=== PATIENT | female | born 1995 | race Caucasian/White ===

== ENCOUNTER 2024-01-11 14:34 | Outpatient (CLI) | payer OTHER, SELFPAY ==
--- NOTE | 2024-01-11 15:00 | US_ITS ---
Patient: NELL ACEVEDO Facility:?[facility] Patient ID:?[id number] Site Patient ID:?[id number]. Site :?[id number] Study:?US-OB Pelvis dating-01/11/2024 3:19:50 PM Ordering Physician:Troy December Final Report: INDICATION: Check viability and dates TECHNIQUE: Transabdominal and transvaginal scanning was performed. Transvaginal scanning was performed to better evaluate the IUP and adnexa. Ovarian blood flow was evaluated with color-flow and pulsed Doppler. COMPARISON: None FINDINGS: There is a living IUP with gestational age of 9 weeks 4 days by LMP and today`s crown-rump length. EDC is 08/11/2024. The embryonic heart rate is measured at 178 beats per minute. The placenta appears to be forming anteriorly. No subchorionic hemorrhage is evident. A left uterine body fibroid measuring 5.3 x 5.2 x 5.0 cm is noted. The ovaries are normal in size and shape. The right ovary measures 3.3 x 1.7 x 1.6 cm and the left 3.3 x 2.9 x 1.8 cm. Ovarian blood flow is demonstrated with color-flow and pulsed Doppler. No adnexal mass or free fluid is apparent. IMPRESSION: 1. Living IUP with gestational age of 9 weeks 4 days by LMP and today`s crown- rump length. EDC is 08/11/2024. 2. No complication evident. 3. 5.3 x 5.2 x 5.0 cm left uterine body fibroid. Dictated by Gordy Winston MD @ 01/12/2024 11:30:49 AM Signed by:?Gordy Winston MD @01/12/2024 11:30:49 AM (Electronic Signature)
== END 2024-01-11 14:35 | disposition home or self-care (01) ==
PROVIDERS: Visit Provider Physician Assistant
DX: Z34.91 Encounter for supervision of normal pregnancy, unspecified, first trimester (principal); O34.11 Maternal care for benign tumor of corpus uteri, first trimester; D25.9 Leiomyoma of uterus, unspecified; Z3A.09 9 weeks gestation of pregnancy
CPT/HCPCS: 76817; 86703; 86706; 86803; 86850; 86900; 86901; 87086; 87340; 87491; 87591

== ENCOUNTER 2024-01-11 16:30 | Outpatient (CLI) | payer OTHER, SELFPAY ==
[2024-01-11 21:28] LABS: Chlamydia DNA Amplified* NOT DETECTED (No Detected); GC DNA Amplified* NOT DETECTED (No Detected)
== END 2024-01-11 16:31 | disposition home or self-care (01) ==
PROVIDERS: PCP Physician Assistant; Visit Provider Physician Assistant
DX: Z34.01 Encounter for supervision of normal first pregnancy, first trimester (principal)
CPT/HCPCS: 86592; 86703; 86704; 86706; 86762; 86787; 86803; 86850; 86900; 86901; 87086; 87340; 87491; 87591

== ENCOUNTER 2024-03-28 13:43 | Outpatient (CLI) | payer OTHER, SELFPAY ==
--- NOTE | 2024-03-28 13:45 | CRLHL7_ITS ---
For Patients: As a result of the Century Cures Act, medical imaging exams and procedure reports are released immediately into your electronic medical record. You may view this report before your referring provider. If you have questions, please contact your health care provider. INDICATION: Evaluate anatomy. COMPARISON: 01/11/2024 TECHNIQUE: Real time mccollum scale imaging of the fetus was performed as well as color Doppler analysis of the umbilical vessels. FINDINGS: Sonographic imaging demonstrates a single living intrauterine gestation. Fetus demonstrates a regular cardiac rate of 145 beats per minute. Fetus has a breech position. The placenta lies anteriorly without evidence of placenta previa. Edge of the placenta located 4.8 cm from the internal cervical os. Amniotic fluid volume appears normal. Single deepest vertical pocket: 5.3 cm. The cervix is closed and measures 3.3 cm in length. The composite ultrasound gestational age is calculated at 21 weeks 0 days with an estimated sonographic due date of 08/08/2024. The estimated weight is 397 grams which lies at the 73rd %. The following biometric measurements were obtained: Biparietal diameter: 4.8 cm/20 weeks 4 days 47th% Head circumference: 17.8 cm/20 weeks 2 days 28th% Abdominal circumference: 16.6 cm/21 weeks 4 days 76th% Femur length: 3.4 cm/20 weeks 5 days 45th% The HC/AC ratio measures: 1.08 range (1.06-1.25) On anatomic survey, there is a normal appearance of the cerebral ventricles, cavum septi pellucidi, cisterna magna and cerebellum. The nose and lips appear normal. Incomplete visualization of the profile. The cervical, thoracic and lumbar spine are well visualized and appear normal. There is a normal four-chamber heart view and the left and right ventricular outflow tracts appear normal. Incomplete visualization of the 3VV and 3VTV. The diaphragm and stomach appear normal. The kidneys and bladder also appear normal. There is a normal three-vessel cord and cord insertion site. The four extremities appear normal. IMPRESSION: Concordance of clinical and sonographic dating. Incomplete visualization of the profile, 3VV and 3VTV. Remainder of the anatomic survey normal. Short-term follow-up recommended. Dictated by Randall Giang MD @ 03/30/2024 9:07:44 AM (Electronically Signed)
== END 2024-03-28 13:44 | disposition home or self-care (01) ==
LOC: US 13:44
PROVIDERS: Visit Provider Obstetrics & Gynecology
DX: Z34.90 Encounter for supervision of normal pregnancy, unspecified, unspecified trimester (principal)
CPT/HCPCS: 76805

== ENCOUNTER 2024-04-11 15:27 | Outpatient (CLI) | payer OTHER, SELFPAY ==
--- NOTE | 2024-04-11 15:30 | CRLHL7_ITS ---
For Patients: As a result of the Century Cures Act, medical imaging exams and procedure reports are released immediately into your electronic medical record. You may view this report before your referring provider. If you have questions, please contact your health care provider. INDICATION: F/U missed anatomy. completed COMPARISON: 01/11/2024, 03/28/2024 TECHNIQUE: Real time mccollum scale imaging of the fetus was performed. FINDINGS: Cervix is closed and measures 3.4 cm. Anterior placenta. Vertex position. Single deepest pocket 6.2 cm. profile, 3VV and 3VTV appear normal. IMPRESSION: Normal profile, 3VV and 3VTV. Dictated by Randall Giang MD @ 04/12/2024 6:57:29 AM (Electronically Signed)
== END 2024-04-11 15:28 | disposition home or self-care (01) ==
LOC: US 15:28
PROVIDERS: Visit Provider Obstetrics & Gynecology
DX: Z34.90 Encounter for supervision of normal pregnancy, unspecified, unspecified trimester (principal); Z36.89 Encounter for other specified antenatal screening
CPT/HCPCS: 76816

== ENCOUNTER 2024-05-15 13:40 | Outpatient (CLI) | payer OTHER, SELFPAY | END 2024-05-15 13:41 | disposition home or self-care (01) | LOC: NFLDREF 05-19 19:02 | PROVIDERS: Visit Provider Obstetrics & Gynecology | DX: Z34.02 Encounter for supervision of normal first pregnancy, second trimester (principal) | CPT/HCPCS: 86592 ==

== ENCOUNTER 2024-05-24 15:36 | Outpatient (RCR) | payer OTHER, SELFPAY | END 2024-08-08 16:07 | disposition home or self-care (01) | PROVIDERS: Visit Provider Obstetrics & Gynecology | DX: O99.891 Other specified diseases and conditions complicating pregnancy (principal); M54.9 Dorsalgia, unspecified; R53.1 Weakness; Z51.89 Encounter for other specified aftercare | CPT/HCPCS: 97110; 97112; 97161 ==

== ENCOUNTER 2024-05-30 07:59 | Outpatient (CLI) | payer OTHER, SELFPAY | END 2024-05-30 08:00 | disposition home or self-care (01) | LOC: NFLDREF 06-03 06:40 | PROVIDERS: Visit Provider Obstetrics & Gynecology | DX: Z34.03 Encounter for supervision of normal first pregnancy, third trimester (principal) | CPT/HCPCS: 82951; 82952 ==

== ENCOUNTER 2024-07-12 09:48 | Outpatient (CLI) | payer OTHER, SELFPAY ==
[2024-07-13 12:11] LABS: Strep B DNA Probe Negative (Negative)
[2024-07-13 12:14] LABS: Strep B Susceptibility Needed? No
== END 2024-07-12 09:49 | disposition home or self-care (01) ==
LOC: NFLDREF 09:48
PROVIDERS: Visit Provider Obstetrics & Gynecology
DX: O24.419 Gestational diabetes mellitus in pregnancy, unspecified control (principal); O14.92 Unspecified pre-eclampsia, second trimester; Z3A.35 35 weeks gestation of pregnancy
CPT/HCPCS: 76816; 76819; 76820; 87081; 87653

== ENCOUNTER 2024-07-12 12:28 | Inpatient (IN) | payer OTHER, SELFPAY ==
[2024-07-12] VITALS (20 sets, daily range): BP systolic 126–147; BP diastolic 69–93; PULSE 64–251; RESP 16; TEMP 36.5; O2SAT 83–100
[2024-07-12 10:48] LABS: Hematocrit 36.9 % (33.0-51.0); Hemoglobin* 12.4 gm/dL (12.0-16.0); Mean Corpuscular HGB Conc 34 gm/dL (32-36); Mean Corpuscular Hemoglobin 31 pg (26-34); Mean Corpuscular Volume 92 fL (80-100); Platelet Count* 240 K/uL (140-440)
[2024-07-12 10:51] LABS: Slide Review Reflex No
[2024-07-12 11:11] LABS: Alanine Aminotransferase* 11 U/L (4-35); Aspartate Amino Transferase* 18 U/L (12-35); Blood Urea Nitrogen* 18 mg/dL (5-24); Creatinine* 0.5 mg/dL (0.5-1.5); Estimated Glomerular Filt Rate 132 ml/min
[2024-07-12 12:02] LABS: Total Protein Urine 30 mg/dL
[2024-07-12 12:03] LABS: Creatinine Urine 76.4 mg/dL; Protein Creatinine Ratio Urine 0.39 (0-0.19)
--- NOTE | 2024-07-12 12:54 | W.PM.LDBA ---
Subjective History of Present Illness Time Seen by Provider: 12:30 Date Seen: 07/12/24 Narrative: Patient is being admitted to Labor and Delivery for induction of labor. She is a 29 year old at 35 weeks and 5 days gestation, transferred to triage from clinic. is complicated by GDM A1, with a new finding of growth restriction, elevated SD ratio via UA Doppler, and hypertensive disorder of today. Please see my clinic note for complete details. Since arriving to triage, Kia has had several mild range blood pressures. On review of her blood pressures, she additionally had an elevated blood pressure at 25 weeks where she does not meet criteria for hypertensive disorder of . HELLP labs were obtained, and found to be within normal limits aside from protein urea. She continues to feel well - denies headache, vision changes, right upper quadrant pain, contractions, vaginal bleeding or leaking of fluid. Endorses active movement. We discussed the diagnosis of preeclampsia without severe features, where medically indicated induction of labor is recommended in the setting of comorbid growth restriction and elevated SD ratio. All questions answered. GBS was collected in clinic, pending at this time. Specific Issues/Plans Spouse: Cam. Baby: Boy! Fish # 5.3 x 5.2 x 5.0 cm left uterine body fibroid # hepatitis-B nonimmune. # Gestational diabetes 1 hr GTT = 146. 3 hr GTT with 3 of 4 values elevated. [employer] visit scheduled, glucometer prescribed Referred to December for consideration of insulin (likely PM only) Visit with December 14, will add protein snack before bedtime. 06/26: 2/8 fasting elevated. Send log again in one week: Good! US for EFW ordered on 06/28/24 to done at 35 weeks. Covid : 06/14/2024 Flu : 06/14/2024 Tdap: 05/30/2024 RSV: 06/28/24 34wk hgb: 11.3 OB - Problem Based A/P Additional Plan (1) Pre-eclampsia affecting childbirth: Status: Acute (2) growth restriction antepartum: Status: Acute (3) Gestational diabetes: Status: Acute Plan Kia is a 29-year-old at 35 weeks 5 days gestational age admitted for induction of labor in the setting of newly diagnosed growth restriction with abnormal UA Dopplers, complicated by preeclampsia without severe features. is otherwise complicated by GDM A1. - Admit to Labor and delivery. - Induction of labor started with Cytotec per protocol overnight. On initial cervical exam she is long, closed and mid position. Discussed potential next steps including cook catheter further cervical ripening is required, versus Pitocin and amniotomy. We had an extensive discussion about the risk/benefits of induction of labor, where patient provided verbal consent to proceed. - Diligent blood pressure monitoring ongoing. Plan to recheck HELLP labs with any sustained severe range blood pressures or new symptoms. - Blood glucose monitoring and treatment per GDM protocol - Blood type O positive - GBS pending, plan to treat based on risk factors (prematurity) with initiation of Pitocin or rupture of membranes. This can be discontinued if her GBS swab returns negative in the near future. - Late term betamethasone was deferred given GDM - SBAR given to wendy Luna [employer], where she will be requested to attend delivery in the setting of prematurity and growth restriction. Kia and her were counseled about the potential complications of prematurity, which could include transfer for NICU admission. OB Exam Physical Exam Vital signs: Temp Pulse Resp BP Pulse Ox 97.7 F 94 16 134/79 100 07/12/24 09:59 07/12/24 12:36 07/12/24 09:59 07/12/24 12:36 07/12/24 10:01 Narrative: General: Alert and oriented, no acute distress Psych: Appropriate mood and affect Cardiovascular: Regular rate and rhythm. Extremities are normal of perfused Lungs: No increased work of breathing Abdomen: Gravid. EFW 2138 g at 3.9 percentile by ultrasound today. Vertex. Cervix: Long and closed, midposition. Cytotec x1 placed.
[2024-07-12] MEDS: miSOPROStoL 25 MCG/0.25 TABLET VAGINAL ×2 (14:51→19:01)
[2024-07-13] VITALS (99 sets, daily range): BP systolic 102–163; BP diastolic 55–88; PULSE 62–105; RESP 16; TEMP 36.7–36.9; O2SAT 88–100; BMI 27.3
[2024-07-13] MEDS: miSOPROStoL 25 MCG/0.25 TABLET VAGINAL ×3 (01:40→11:20)
--- NOTE | 2024-07-13 08:01 | P.PCN_ITS ---
Procedure Note Time Seen by Provider: 08:01 Date Seen: 07/13/24 Will [facility] bill your pro fee for this procedure?: Yes Procedure: Subjective: Patient is completely comfortable after 4 doses of Cytotec. Vital signs: Per electronic medical record. EFM: Baseline 130, positive accelerations, negative decelerations, moderate variability, reactive. Category 1. [place]: Contractions are sporadic SVE: Fingertip/80 %/-2/posterior/soft. Assessment: 29-year-old 1 para 0 at 35 weeks 6 days gestation undergoing induction of labor due to IUGR with elevated SD ratio, GDM A1 and preeclampsia without severe features Plan: 1. Continue Cytotec and will recheck her cervix after her 5th dose I make a plan for further cervical ripening or start Pitocin for induction of labor 2. GBS status is pending 3. Blood type O positive
[2024-07-13 10:43] LABS: Amnisure Rom* Negative
[2024-07-13] MEDS: MORPHINE 10 MG/ML inj 4 MG IVP (14:50)
--- NOTE | 2024-07-13 17:04 | PM.OBPNL ---
Subjective Time Seen by Provider: 02:30 Date Seen: 07/13/24 Narrative: Subjective: Complaining of cramping/contractions after 5 doses of Cytotec. Verbal consent obtained to place a Cook catheter.. Vital signs: Per electronic medical record. EFM: Baseline 130s, positive accelerations, negative decelerations, model variability, reactive Category 1. [place]: Contractions every 2-4 minutes. SVE: 1/50%/-2. Patient was placed in the dorsal lithotomy position after being given morphine 4 mg IV as she did not tolerate manual insertion of the Cook catheter without pain medication. A speculum was advanced into the vaginal canal to visualize the cervix. The Cook catheter was advanced through the cervical os using a ring forceps to advance the catheter. The intrauterine balloon was filled with 25 mL of saline and the speculum and stylet from the catheter were removed. Assessment: 29-year-old 1 para 0 at 35 weeks 6 days gestation undergoing induction of labor for intrauterine growth restriction with elevated SD ratio on umbilical cord Doppler study and gestational hypertension Plan: 1. Cook catheter was placed at 3:00 p.m.. 60 mL in both balloons. 2. Was then notified by the patient's nurse at 5:00 p.m. that she had a large gush of fluid and the catheter fell out. I asked the nurse to perform an AmniSure for verification of ruptured membranes although is very suspicious for spontaneous rupture of membranes. Clear fluid noted. Will start Pitocin per induction protocol Objective Vital Signs: Last Vital Signs Temp 98.3 F 07/13/24 11:31 Pulse 65 07/13/24 15:58 Resp 16 07/13/24 11:31 BP 120/66 07/13/24 15:58 Pulse Ox 98 07/13/24 11:31
[2024-07-13] MEDS: OXYTOCIN 30 unit/500 ML in NS 30 UNIT/500 ML BAG IVPB (17:22)
[2024-07-13] MEDS: LACTATED RINGERS 1000 ML 1,000 ML 125 ML IV (17:22)
[2024-07-13 17:38] LABS: Amnisure Rom* POSITIVE
[2024-07-13] MEDS: AMPICILLIN 2 GM in 0.9 % SODIUM CHLORIDE Mini-bag 100 ML IVPB (17:45)
[2024-07-13] MEDS: ONDANSETRON 2 MG/ML inj 4 MG IV (18:40)
--- NOTE | 2024-07-13 19:05 | PM.OBPNL ---
Subjective Time Seen by Provider: 19:05 Date Seen: 07/13/24 Narrative: Subjective: Patient is uncomfortable with contractions. Pitocin: 1 milliunits/minute. Requesting an epidural Vital signs: Per electronic medical record. EFM: Baseline 130s, positive accelerations, negative decelerations, moderate variability, reactive. Category 1. [place]: Contractions every 1-3 minutes to palpation, these are not being monitored very well. SVE: 2 cm/90 %/-1. Assessment: 29-year-old 1 para 0 at 35 weeks 6 days gestation undergoing induction of labor for IUGR with elevated umbilical cord S/D ratio and elevated blood pressure Plan: 1. Continue Pitocin per labor induction protocol. 2. Contacting anesthesia to have an epidural placed Objective Vital Signs: Last Vital Signs Temp 98.3 F 07/13/24 11:31 Pulse 67 07/13/24 17:58 Resp 16 07/13/24 11:31 BP 147/85 H 07/13/24 17:58 Pulse Ox 98 07/13/24 11:31
[2024-07-13 19:31] LABS: Basophils Percent Auto 0.2 % (0.0-3.0); Eosinophils Percent Auto 0.5 % (0.0-7.0); Hematocrit 38.1 % (33.0-51.0); Hemoglobin* 12.8 gm/dL (12.0-16.0); Immature Granulocytes Pct Auto 0.5 %; Lymphocytes Percent Auto 11.8 % (20-44); Mean Corpuscular HGB Conc 34 gm/dL (32-36); Mean Corpuscular Hemoglobin 31 pg (26-34); Mean Corpuscular Volume 91 fL (80-100); Monocytes Percent Auto 7.8 % (0.0-11.0); Neutrophils Percent Auto 79.2 % (42.0-72.0); Platelet Count* 247 K/uL (140-440); Red Blood Count 4.18 m/uL (4.00-5.20); Slide Review Reflex No; White Blood Count* 12.99 K/uL (4.50-11.00)
[2024-07-13] MEDS: LIDOCAINE 2% (PF) 5 ML VIAL EPIDURAL (19:52)
[2024-07-13] MEDS: ROPIVACAINE 0.2% 100 ml 100 ML 12 MG EPIDURAL (19:53)
--- NOTE | 2024-07-13 20:03 | P.ANBPRC_ITS ---
[facility] Medical History (Updated 07/12/24 @ 17:13 by Kavita Warner MD) History of asthma ?Z87.09 - Personal history of other diseases of the respiratory system (ICD- 10) Social History (Updated 01/12/24 @ 12:53 by Ping Abel PA-C) Narrative: Occupation: Supervising. Marital status: . Lutheran/cultural needs: no. Chemical or radiation exposure: no. Pre- tobacco use: no. Pre- alcohol use: no. Current tobacco use: no. Current alcohol use: no. Recreational drug use: no. Dietary restrictions: no. Blood transfusion acceptable in an emergency: yes. PSYCHOSOCIAL HISTORY: History of depression or currently depressed: no. Current or past physical, emotional, or sexual mistreatment: no. Problems that will make it hard to make it to appointments: no. What is your current living situation?: I presently have a place to live Problems where you live: no known problems In the past 12 months, utilities in danger of being shut off: no In past 12 months, lack of transportation kept you from medical appts, meetings, work, or getting things needed for daily living: no In the past 12 mos, have been you worried that your food would run out before you had money to buy more?: never true In the past 12 mos, the food you bought just didn't last and you didn't have money to buy more?: never true Smoking Status: Never smoker How often does anyone, including family, friends and others, physically hurt you : never How often does anyone, including family, friends and others, insult or talk down to you: never How often does anyone, including family, friends and others, threaten you with harm: never How often does anyone, including family, friends and others, scream or curse at you: never Little interest or pleasure in doing things: not at all Feeling down, depressed, or hopeless: not at all Meds Home Medications and Allergies Home Medications ?Medication ?Instructions ?Recorded ?Confirmed ?Type docosahexaenoic acid 200 mg mg PO DAILY 01/11/24 07/12/24 History capsule ( DHA) magnesium 250 mg tablet 250 mg PO QDAY 01/25/24 07/12/24 History acetaminophen 325 mg tablet 325 mg PO ONCE PRN 05/15/24 07/12/24 History (Tylenol) calcium carbonate (Tums) 200 mg PO BID 05/15/24 07/12/24 History Allergies Allergy/AdvReac Type Severity Reaction Status Date / Time No Known Drug Allergies Allergy Verified 07/12/24 09:05 Results Labs Labs: Laboratory Results - last 24 hr 07/13/24 07/13/24 07/13/24 10:25 17:16 19:27 WBC 12.99 H RBC 4.18 Hgb 12.8 Hct 38.1 MCV 91 MCH 31 MCHC 34 RDW Coeff of Saima 13.0 Plt Count 247 Neut % (Auto) 79.2 H Lymph % (Auto) 11.8 L [place] % (Auto) 7.8 Eos % (Auto) 0.5 Baso % (Auto) 0.2 Neut # (Auto) 10.30 H Lymph # (Auto) 1.50 [place] # (Auto) 1.00 H Eos # (Auto) 0.10 Baso # (Auto) 0.00 Abs Immat Gran (auto) 0.10 Imm/Tot Granulo (auto) 0.5 Membrane Rupture Negative POSITIVE Vital Signs Vital Signs: Last Vital Signs Temp 98.0 F 07/13/24 18:45 Pulse 71 07/13/24 20:00 Resp 16 07/13/24 11:31 BP 140/81 H 07/13/24 20:00 Pulse Ox 100 07/13/24 20:01 Weight: 72.121 kg Height: 162.56 cm Anesthesia Procedures Epidural Insertion Patient Location: OB Start Time: 19:15 Stop Time: 20:15 Start Date: 07/13/24 Stop Date: 07/13/24 Reason for Block: procedure for pain Patient Position: sitting Performed By: Cheryl Alexis Preanesthetic Checklist: IV checked, risks and benefits discussed, monitors and equipment checked, pre-op evaluation, timeout performed and anesthesia consent Prep: chlorhexidine gluconate Monitoring: blood pressure monitoring, continuous pulse oximetry and heart rate Approach: midline Vertebral Space: lumbar (1-5) Epidural Technique: VERÓNICA saline Needle Type: Tuohy needle Injection Technique: continuous catheter (continuous catheter) Needle gauge: 17 Needle Length (cm): 10 cm Needle Insertion Depth (cm): 6 Catheter Gauge: 19 Catheter Type: multi-orifice Catheter at skin depth (cm): 15 Test Dose Result: negative and lidocaine 1.5% with epinephrine 1 to 200,000
[2024-07-13] MEDS: LACTATED RINGERS 1000 ML 1,000 ML 100 ML IV (22:00)
[2024-07-14] VITALS (28 sets, daily range): BP systolic 119–152; BP diastolic 58–86; PULSE 57–96; RESP 16; TEMP 36.6–37.1; O2SAT 96–98
--- NOTE | 2024-07-14 01:28 | W.PM.OBVAGDE ---
OB Procedure Vag Delivery Mother Details Mother Details: The patient is a 29 year-old, 1, Para 0, admitted on 07/12/24 at Days gestation. : 1 Para: 1 Weeks Gestation: 36 Admission Date: 07/12/24 Additional Details Amniotic Membrane Status: SROM Amniotic Membrane Rupture Date: 07/13/24 Amniotic Membrane Rupture Time: 17:00 Amniotic Membrane Fluid Description: Clear Analgesia/Anesthesia Type: Epidural Waterbirth: No Pitcoin: Yes Intrapartal Events: Labor Induction Induction Method: Intracervical balloon catheter, per misoprostol protocol and per pitocin protocol Labor Onset: 19:00 Complete: 00:15 Pushin:40 Heart: heart tones during second stage were category 2 with decelerations into the 110s during contractions with immediate return to baseline and moderate variability between contractions. Delivery Details Delivery Date: 07/14/24 Route of delivery: Infant Gender: Male Viability: Alive; Heart Rate Present Position at Delivery: OA Delivery Details: Delivered over an intact via spontaneous vaginal delivery. was placed on maternal abdomen.? Cord was clamped and cut after a 60 second delay. Nose and mouth were bulb suctioned.? Infant weight: 5 lb 4 oz, AGA 1 Minute Interval Total Score: 6 5 Minute Interval Total Score: 8 Additional Details Shoulder Dystocia: No Placenta Delivery Time: 00:16 Placental Delivery Description: Spontaneous Procedure Done: Global Blood Loss: 25 Laceration: None Blood Loss Measurement Type: QBL [place] Used: No Sponge/Need Count Correct: Yes Cord Vessel Description: 3 Vessels Event Summary Status: Mother and infant were stable after delivery. The monitored by DON Rodgers for pre term delivery possible transfer of care of the to a intensive care unit. Disposition: floor
[2024-07-14] MEDS: OXYTOCIN 30 unit/500 ML in NS 30 UNIT/500 ML BAG 300 UNIT IVPB (01:30)
[2024-07-14 01:58] LABS: Rapid Plasma Reagin (RPR) Non Reactive (Non Reactive)
[2024-07-14] MEDS: IBUPROFEN 600 MG TABLET PO ×3 (02:49→19:30)
[2024-07-14 09:07] LABS: Hematocrit 39.2 % (33.0-51.0); Hemoglobin* 13.1 gm/dL (12.0-16.0); Mean Corpuscular HGB Conc 33 gm/dL (32-36); Mean Corpuscular Hemoglobin 31 pg (26-34); Mean Corpuscular Volume 92 fL (80-100); Platelet Count* 243 K/uL (140-440); Red Blood Count 4.26 m/uL (4.00-5.20); White Blood Count* 15.47 K/uL (4.50-11.00)
[2024-07-14 09:08] LABS: Slide Review Reflex No
[2024-07-14] MEDS: NIFEdipine 30 MG TAB.ER.24 PO (09:13)
[2024-07-14] MEDS: ACETAMINOPHEN 500 MG TABLET 1000 MG PO ×3 (09:13→21:18)
[2024-07-14] MEDS: DOCUSATE SODIUM 100 MG CAPSULE PO (09:13)
[2024-07-14 09:21] LABS: Creatinine* 0.6 mg/dL (0.5-1.5); Est. Creatinine Clearance* 121.62; Estimated Glomerular Filt Rate 126 ml/min
[2024-07-14 09:22] LABS: Alanine Aminotransferase* 12 U/L (4-35); Aspartate Amino Transferase* 21 U/L (12-35); Blood Urea Nitrogen* 11 mg/dL (5-24)
--- NOTE | 2024-07-14 14:27 | PM.ANPOST ---
Post Anesthesia Note Post Anesthesia Note Patient seen: Inpatient Respiratory Status: adequate Cardiovascular Status: adequate Mental Status: baseline Pain: adequate Temp: baseline Anesthetic awareness: N/A Complications: none Follow care: none
[2024-07-14] MEDS: SODIUM CHLORIDE 0.9 % (FLUSH) 10 ML SYRINGE IVF (21:19)
[2024-07-15] MEDS: IBUPROFEN 600 MG TABLET PO ×3 (01:00→21:51)
[2024-07-15 01:03] VITALS: BP 127/81; PULSE 59; RESP 16; TEMP 36.6; O2SAT 98
[2024-07-15 06:50] LABS: Hemoglobin* 11.6 gm/dL (12.0-16.0)
--- NOTE | 2024-07-15 07:23 | PC.NURSE ---
Fasting POC glucose checked this am. 84 is the result.
--- NOTE | 2024-07-15 08:51 | P.OBPN_ITS ---
OB - PN:Subj Subjective Time Seen by Provider: 08:51 Date Seen: 07/15/24 Patient comments OB post-: no complaints, pain well controlled, tolerating diet and flatus present infant status: bottle feeding status: exclusively bottle feeding Narrative: Kia is ppd#1 and states she is doing. The baby has elevated bilirubin and is using Neosure for feeding. Planning on discharge home tomorrow. Pain is well- controlled with ibuprofen and tylenol. OB - PN: Obj Exam Physical Exam: Vital signs: Temp Pulse Resp BP Pulse Ox O2 Del Method 97.8 F 59 L 16 127/81 98 Room Air 07/15/24 01:03 07/15/24 01:03 07/15/24 01:03 07/15/24 01:03 07/15/24 01:03 07/15/24 01:03 Narrative: General: Pleasant, young woman in no acute distress. Vital signs: Included in her electronic medical record. Heart: Regular rate and rhythm without gallop, rub or murmur. Chest: Clear to auscultation bilaterally. Abdomen: Fundus firm at 3 cm below the umbilicus in the midline. Soft, nontender, nondistended with normal bowel sounds. Extremities: No pain or edema OB - PN: Obj Data Labs Labs: Laboratory Results - last 24 hr 07/14/24 07/15/24 08:56 06:02 WBC 15.47 H RBC 4.26 Hgb 13.1 11.6 L Hct 39.2 MCV 92 MCH 31 MCHC 33 Plt Count 243 BUN 11 Creatinine 0.6 Estimated Creat Clear 121.62 Estimated GFR 126 AST 21 ALT 12 OB - PN: A/P Delivery Assessment and Plan (1) Pre-eclampsia affecting childbirth: Status: Acute Assessment and Plan: 1. Continue nifedipine ER 30 mg p.o. daily 2. Planning on return to the clinic for blood pressure check on Wednesday07/19/2024. (2) growth restriction antepartum: Status: Acute (3) Gestational diabetes: Status: Acute Assessment and Plan: 1. Planning to hour glucose tolerance test tomorrow Plan Plan: routine care
[2024-07-15 09:18] VITALS: BP 123/77; PULSE 77; RESP 16; TEMP 36.6; O2SAT 98
[2024-07-15] MEDS: NIFEdipine 30 MG TAB.ER.24 PO (09:23)
[2024-07-15] MEDS: DOCUSATE SODIUM 100 MG CAPSULE PO ×2 (09:23→21:52)
[2024-07-15] MEDS: SODIUM CHLORIDE 0.9 % (FLUSH) 10 ML SYRINGE IVF (09:30)
[2024-07-15] MEDS: ACETAMINOPHEN 500 MG TABLET 1000 MG PO (11:45)
[2024-07-15 16:45] VITALS: BP 116/67; PULSE 64; RESP 16; TEMP 37; O2SAT 99
[2024-07-15 20:24] VITALS: BP 120/73; PULSE 66; RESP 16; TEMP 37
[2024-07-16 00:03] VITALS: BP 131/81
[2024-07-16 05:16] VITALS: BP 122/71; PULSE 66; RESP 20; O2SAT 98
[2024-07-16 06:56] LABS: Glucose* 87 mg/dL (60-115)
[2024-07-16 06:58] LABS: Glucose Fasting 87 mg/dl (70-95)
[2024-07-16] MEDS: DOCUSATE SODIUM 100 MG CAPSULE PO (08:45)
[2024-07-16] MEDS: NIFEdipine 30 MG TAB.ER.24 PO (08:45)
[2024-07-16] MEDS: IBUPROFEN 600 MG TABLET PO (08:46)
[2024-07-16 08:50] LABS: Glucose 2 Hour 135 mg/dl (70-155)
[2024-07-16 08:58] VITALS: BP 121/74; PULSE 64; RESP 16; TEMP 36.7; O2SAT 98
--- NOTE | 2024-07-16 09:12 | PM.OBDSVD1 ---
DS: Providers Provider Time Seen by Provider: 09:12 Date Seen: 07/16/24 Date of admission: 07/12/24 12:28 Primary care physician: Not a Local Provider Admitting Clinician: Kavita Warner MD Attending Physician on discharge: Joy Linder MD Date of Discharge: 07/16/24 DS: Diagnosis Discharge Diagnosis (1) delivery after induction of labor: Status: Acute (2) Pre-eclampsia affecting childbirth: Status: Acute (3) growth restriction antepartum: Status: Acute Problem details: Baby was AGA Exam Narrative: Exam Narrative: General: Pleasant, woman in no acute distress. Vital signs: Included in her electronic medical record. Heart: Regular rate and rhythm without gallop, rub or murmur. Chest: Clear to auscultation bilaterally. Abdomen: Fundus firm at 3 cm below the umbilicus in the midline. Soft, nontender and nondistended with normal bowel sounds throughout. Extremities: No pain or edema. Const: Vital Signs, click to edit/add: Vital Signs - 24 hr 07/15/24 09:18 07/15/24 16:45 07/15/24 20:24 Temperature 97.9 F 98.6 F 98.6 F Pulse Rate [Pulse Oximeter] 77 64 66 Respiratory Rate 16 16 16 Blood Pressure [Ri ght Arm] 123/77 116/67 120/73 Pulse Oximetry 98 99 Oxygen Delivery Me thod Room Air Room Air 07/16/24 00:03 07/16/24 05:16 07/16/24 08:58 Temperature 98.0 F Pulse Rate [Pulse Oximeter] 66 64 Respiratory Rate 20 16 Blood Pressure [Ri ght Arm] 131/81 122/71 121/74 Pulse Oximetry 98 98 Oxygen Delivery Me thod Room Air Room Air OB - DS: Summary Hospital Course Hospital Course: The patient is a 29 year old G 1 now P 1 at 35 and 6/7 weeks gestation that was admitted to the Center on 07/12/24 for induction of labor due to suspected IUGR with elevated umbilical SD ratio and preeclampsia without severe features. She had an uncomplicated vaginal delivery. She delivered a viable male . She is bottle feeding. the patient has done well. She is on nifedipine ER 30 mg daily and I asked her to follow-up in the office on Wednesday07/19/2024 for blood pressure check. Her blood pressures have been normal on this medication. She has no symptoms of preeclampsia: Denies headache, visual changes, right upper quadrant pain and swelling. Peripartum Data delivery method: Vaginal Laceration description: None complications: none Infant Gender: Male Status at Discharge Functional status at discharge: independent ambulation Overall status at discharge: patient is progressing back to baseline Time Spent with Patient Time attestation: Total time spent providing and/or coordinating discharge services: Time spent: Less than 30 minutes Discharge Plan Discharge Disposition: Home, Self-Care Date of Admission: 07/12/24 12:28 Attending Provider on Discharge: Joy Linder Primary Care Provider: Provider,Not a Local Condition: Stable Anticipated Discharge Date/Time: 07/16/24 Discharge Medications: New nifedipine 30 mg Tablet Extended Release 24hr 30 mg PO DAILY Qty: 60 0RF docusate sodium 100 mg Capsule 100 mg PO BID Qty: 100 0RF ibuprofen 600 mg Tablet 600 mg PO Q6H PRNQty: 30 0RF Continued DHA 200 mg capsule 200 mg PO DAILY magnesium 250 mg tablet 250 mg PO QDAY calcium carbonate [Tums] 200 mg calcium (500 mg) tablet,chewable 200 mg PO BID acetaminophen [Tylenol] 325 mg tablet 325 mg PO ONCE PRN Discontinued (DME) blood pressure monitor Kit See Rx Instructions .Route Qty: 1 0RF Rx Instructions: As directed (DME) lancets [facility] See Rx Instructions .MEDSUPPLY Qty: 100 3RF Rx Instructions: Test blood sugar 4 times daily as directed (DME) Test Strips [facility] See Rx Instructions .MEDSUPPLY Qty: 100 3RF Rx Instructions: Test blood sugar 4 times daily as directed (DME) Blood Glucose Meter [facility] See Rx Instructions .MEDSUPPLY Qty: 1 0RF Rx Instructions: As directed Discharge Orders: Discharge Order (Routine); Ordered 07/16/24 Ordered By: Joy Linder Patient Education: Preeclampsia and Eclampsia After Delivery (GEN), Vaginal Delivery (DC) Additional Instructions: ACTIVITY RESTRICTIONS: Nothing vaginally for 6 weeks: no tampons/intercourse Off of work/school for a minimum of 6 weeks Symptoms to report to doctor: -Bleeding that saturates more than one pad per hour ?-Passing clots larger than the size of a golf ball ?-Pain not relieved by prescribed medication ?-Fever above 100.4 degrees Fahrenheit ?-A foul vaginal odor ?-Difficulty in emotions, mood and functions ?-Thoughts of hurting yourself and/or ?-Painful, reddened area in your breast ?-Any drainage, redness or tenderness in your IV/epidural site ?-Severe headache that doesn't improve after taking medications ?-Changes in vision, including temporary loss of vision, blurred vision, and/or light sensitivity ?-Upper abdominal pain (usually under ribs on the right side) ?-Decrease in urination or painful, frequent urinating ?-Chest pain ?-Shortness of breath ?-Tenderness or pain with redness and/swelling in the calf(s) of your leg Follow-up: [facility]. [facility] for a blood pressure check and visit with a physician to assess need for continued blood pressure medication. 2. 2 week visit to screen for anxiety and depression and discuss contraceptive options 3. A 6 week visit for an annual physical exam. consultation services are available to all mothers and babies for the first year after delivery.? To make an appointment, please call [phone]. Activity Level: Other Discharge Diet: Regular Follow Up Appointments: [facility] [Provider Group] Provider,Not a Local [Primary Care Provider] - [facility]: [facility] Instructions
[2024-07-16] MEDS: ACETAMINOPHEN 500 MG TABLET 1000 MG PO (12:23)
== END 2024-07-16 12:00 | disposition home or self-care (01) | DRG 805 ==
LOC: OB OUT 12:28 → OB 12:28
PROVIDERS: Obstetrics & Gynecology; Admitting Provider Obstetrics & Gynecology; Visit Provider Obstetrics & Gynecology
DX: O36.5930 Maternal care for other known or suspected poor fetal growth, third trimester, not applicable or unspecified (principal); O60.14X0 Preterm labor third trimester with preterm delivery third trimester, not applicable or unspecified; O14.04 Mild to moderate pre-eclampsia, complicating childbirth; O24.420 Gestational diabetes mellitus in childbirth, diet controlled; O34.13 Maternal care for benign tumor of corpus uteri, third trimester; D25.9 Leiomyoma of uterus, unspecified; Z78.9 Other specified health status; Z3A.35 35 weeks gestation of pregnancy; Z37.0 Single live birth
CPT/HCPCS: 01967; 36415; 59200; 82565; 82570; 82947; 82950; 82962; 84112; 84156; 84450; 84460; 84520; 85018; 85025; 85027; 86592; 86850; 86900; 86901; 88307; A9270; C1726; J0290; J2270; J2371; J2405; J2795; J7120

== ENCOUNTER 2024-09-05 09:23 | Outpatient (CLI) | payer OTHER, SELFPAY ==
[2024-09-08 06:00] LABS: HPV Source Cervical; HPV, High Risk by TMA Not Detected
== END 2024-09-05 09:24 | disposition home or self-care (01) ==
PROVIDERS: Visit Provider Obstetrics & Gynecology
DX: Z12.4 Encounter for screening for malignant neoplasm of cervix (principal)
CPT/HCPCS: 87624; 87625; 88141; 88142